=== PATIENT | female | born 1940 | race Caucasian/White ===

== ENCOUNTER 2016-07-13 11:15 | Inpatient (IN) ==
[~2016-07-13 11:15] MED LIST: ASPIRIN 325 MG TABLET PO ONE; DIAZEPAM 5 MG TABLET PO ONE; MAGNESIUM SULF RIDER 2 GM in PREMIX 1 EACH IV PRN; POTASSIUM CHLORIDE RIDER 10 MEQ in PREMIX 1 EACH IV PRN; diphenhydrAMINE CAP 25 MG CAPSULE PO ONE
[2016-07-13] MEDS ORDERED: diphenhydrAMINE CAP 25 MG CAPSULE ONE (12:09)
[2016-07-13] MEDS ORDERED: DIAZEPAM 5 MG TABLET ONE (12:10)
[2016-07-13] MEDS ORDERED: SODIUM BICARBONATE 2.4 MEQ/5 ML VIAL ONE (13:25)
[2016-07-13] MEDS ORDERED: HEPARIN/NACL 0.9% 2 UNITS/ML 0 ML IV ONE (13:25)
[2016-07-13] MEDS ORDERED: LIDOCAINE 1% 20 ML VIAL ONE (13:25)
[2016-07-13] MEDS ORDERED: MAGNESIUM SULF RIDER 4 GM in PREMIX 1 EACH IV PRN (13:41)
[2016-07-13] MEDS ORDERED: guaiFENesin/DM ER 600-30 MG TABLET PO PRN (13:41)
[2016-07-13] MEDS ORDERED: MAGNESIUM SULF RIDER 2 GM in PREMIX 1 EACH IV PRN (13:41)
[2016-07-13] MEDS ORDERED: LACTULOSE 20 GM/30 ML UDCUP PO PRN (13:41)
[2016-07-13] MEDS ORDERED: ONDANSETRON 4 MG/2 ML VIAL IV PRN (13:41)
[2016-07-13] MEDS ORDERED: BISACODYL 5 MG TABLET PO PRN (13:41)
[2016-07-13] MEDS ORDERED: ACETAMINOPHEN 325 MG TABLET PO PRN (13:41)
[2016-07-13] MEDS ORDERED: DOCUSATE SODIUM 100 MG CAPSULE PO PRN (13:41)
--- NOTE | 2016-07-13 13:41 | Event Note ---
Please see scanned history and physical for the patient's history. She is status post bioprosthetic aortic valve replacement. I have been evaluating her in the outpatient setting for progressive dyspnea. She has at least moderate aortic valve restenosis, some aortic regurgitation, moderate mitral regurgitation as well as an abnormal chest x-ray that does show some interstitial fibrosis. She underwent pulmonary function testing at Dr. Cazares's office yesterday but I do not have these results. Stress test was abnormal but difficult to interpret, may just be a poor quality study. She was seen today preoperatively for elective MONSE, right and left heart catheterization. Her dyspnea has profoundly worsened, she cannot walk across the room at this point. She is coughing up yellow sputum. She is wheezing on exam with prolonged expirations and her saturation is 89%. Accordingly, I am going to cancel her elective procedure, admit her to the hospital as an inpatient so that she can undergo pulmonary evaluation and treatment, and we will hope to reschedule her procedure possibly Monday afternoon if she is clinically improved such that it is safer to proceed with the elective procedure. I have discussed this case with Drs. Cazares and Kevin.
[2016-07-13] MEDS ORDERED: ALBUTEROL/IPRATROPIUM 3 ML NEB RESP TX PRN (13:46)
--- NOTE | 2016-07-13 15:09 | EKG Report ---
Stationary ECG Study [facility] Test Date: 07/13/2016 3:09:16 PM Pat Name: CHASIDY VALDEZ Department: Room: 277 Gender: F Metrology Technician: SIXTO : 1940 Requested by: Zelda Kent Order Number: [id number] Reading MD: JUANITA MATA Intervals [place] Rate: 68 P: 54 HI: 188 QRS: 41 QRSD: 91 T: 62 QT: 398 QTc: 415 Interpretive Statements SINUS RHYTHM At 68 bpm probable old anteroseptal MN NST Electronically Signed On 07-18-16 15:39:37 CDT by JUANITA MATA [email or web address]
[2016-07-13 15:20] LABS: Basophils # 0.1 10*3/uL (0.0-0.2); Basophils % 0.7 % (0.0-0.8); Eosinophils % 0.6 % (0.00-10.9); Hematocrit 37.7 VOL% (35.7-47.0); Hemoglobin 12.8 GM/DL (12.0-16.0); Immature Granulocytes % 0.6 %; Immature Granulocytes Absolute 0.04 #; Lymphocytes # 1.5 10*3/uL (1.4-4.0); Lymphocytes % 21.8 % (21.3-54.2); Mean Corpuscular Hemoglobin 30 PG (27-34); Mean Corpuscular Volume 89.1 FL (87-102); Mean Platelet Volume 10.2 FL (9.6-12.0); Monocytes # 0.4 10*3/uL (0.11-0.8); Monocytes % 5.4 % (1.7-12.7); Neutrophils # 4.8 10*3/uL (1.4-7.4); Neutrophils % 70.9 % (38.7-73.9); Platelet Count 165 T/CUMM (130-400); Red Blood Count 4.23 MC/CUMM (3.8-5.5); Red Cell Distribution Width 12.9 % (9.3-17.3); White Blood Count 6.7 T/CUMM (4-12)
--- NOTE | 2016-07-13 15:27 | XRay Report ---
XR chest 2V Indication: Shortness of breath Comparison: 05 Jul 2016 Findings: The heart and mediastinum are stable in size and configuration with cardiac surgery changes. The pulmonary vascularity is slightly increased with bilateral increased interstitial lung density. Small amount of right lower lung density is present. No other other lung infiltrates, effusions, pneumothorax or other abnormality is demonstrated. Impression: Findings suggest mild cardiac decompensation. Small amount of right lower lung density present, could indicate early infiltrate. PROCEDURE INTERPRETED AT [facility] DEPARTMENT OF RADIOLOGY Final Report Signed by: Dr. Dylon Prieto
[2016-07-13 15:44] LABS: Albumin 4.1 G/DL (3.4-5.0); Bilirubin,Total 0.8 MG/DL (0.2-1.0); Calcium 9.1 MG/DL (8.5-10.1); Magnesium 2.2 MG/DL (1.8-2.4); Osmolality,Calculated 286.1 MOS/KG (273-304); Potassium 3.9 MMOL/L (3.5-5.1); Total Protein 6.7 G/DL (6.4-8.3)
[2016-07-13] MEDS: SODIUM CHLORIDE 0.45% 1,000 ML IV SCH (15:48)
[2016-07-13] MEDS ORDERED: FUROSEMIDE 40 MG/4 ML VIAL IV ONE (16:09)
--- NOTE | 2016-07-13 16:10 | Event Note ---
Labs and CXR reviewed. Will initiate Lasix therapy.
--- NOTE | 2016-07-13 18:03 | Pulmonology Consult Note ---
History of Present Illness Chief complaint: Acute bronchitis. Acute CHF History of present illness: Ms. Ashley is a 76 year old white female whom I been asked to see in pulmonary consultation for evaluation and treatment. This patient was admitted for progressive shortness of breath dyspnea on exertion and she had a element of orthopnea and PND. She denies any chest pain. She complains of a cough productive of thick tenacious yellow sputum This patient has gastroesophageal reflux disease but she denies aspiration. She denies solid dysphasia. There is been no cardiac angina. Patient denies epistaxis hemoptysis hematemesis medication melena. The remainder the review of systems is negative Allergies. See below. Home medicines. See below Hospital medicines. See below Past history. Past history of aortic valve replacement. She has developed aortic valve restenosis and aortic regurgitation. Patient also has moderate mitral regurgitation. She is recently had a abnormal stress test. Gastroesophageal reflux disease. High blood pressure. History of depression and anxiety patient had an episode of deep venous thrombophlebitis of left lower extremity in 2010 when she had an aortic valve replacement. There is been no recurrence since then. Hyperlipidemia. Surgeries. Aortic valve replacement June 2010. Tonsillectomy and adenoidectomy. Breast biopsy. Transabdominal hysterectomy. Cholecystectomy. Social history. The patient never smoked but her mother and her were smokers. She is followed by Dr. Zelda Kent and Dr. Susan Harris. 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 Patient does not use alcohol. Family history. Positive for heart disease. Her mother at age 49 of a myocardial infarction. Chest x-ray. 12/2016. Cardiomegaly. Engorged central vasculature. Sternal wires. Bilateral pleural effusions and increased interstitial markings all compatible with congestive heart failure. Cannot absolutely rule out a right lower lung infiltrate. Pulmonary function test. 07/12/2016. My interpretation. 1. Small airways disease. FEF 2575 is 46% 2. No response to inhaled bronchodilators. 3. Moderate restrictive lung disease. Forced vital capacity is 1.67 L or 62% of predicted. 4. Perfusion abnormality. DLCO is 56% of predicted. DLCO/VA is 133% of predicted. 5. Moderate decrease in maximum voluntary ventilation at 50 L/min or 63% predicted. 6. Mild hypoxemia. O2 sats of 94% on room air. Lab. Natruretic peptide is 2301. Creatinine is 1.1 with a BUN of 15. Electrolytes are normal. Liver function tests are normal. Protein albumin and globulin are normal. White blood cell count is 6700 with 71 segs 22 lymphs and 5 monos. H&H is 12.8/37.7 with normal indices and normal red blood cell distribution with. Platelets are 165,000 with a normal mean platelet volume. Physical exam. Vital signs. See below Psychiatric. Oriented 3. Intelligent. Neurologic. Cranial nerves are intact. Long track motor functions intact. Sensory exam was not done. Gait was not tested. Face is symmetrical. Lips and tongue are normal. Neck. Symmetrical slightly kyphotic with no meningismus. No mass. Thyroid was not palpated. Lymphatics. No submandibular cervical or supraclavicular adenopathy. Chest. Bibasilar rales and large airway congestion. No chest wall tenderness. Heart. The sitting position there is a loud systolic ejection murmur over the aortic valve area and there is a systolic ejection murmur over the aortic valve that radiates towards the anterior axillary line on the left. Abdomen. Nontender. Positive bowel sounds. No organs were palpated. Extremities. No edema. Slight tenderness with pressure over the posterior calves bilaterally. Breasts. Deferred and rectal. Deferred. Skin. No cancerous infectious lesions of the face and hands. No other areas were examined. The remainder the physical exam is negative. Impression. 1. Aortic valve replacement 2010. Restenosis and aortic insufficiency 2. Moderate mitral regurgitation 3. Acute congestive heart failure. 4. Acute bronchitis. 5. Non-smoker. Significant history of passive smoking. 6. Moderate restrictive lung disease. This is overestimated because of the presence of congestive heart failure. 7. Small airways disease. 8. Hiatal hernia. Gastroesophageal reflux without evidence of aspiration 9. See past history Plan. 1. Sputum for Gram stain culture sensitivity 2. Meropenem. 1000 mg IV piggyback every 8 hours 3. Mucinex 600 mg p.o. twice daily 4. Duo nebs 4 times daily and as needed 5. Follow-up chest x-ray and lab. 6. Doppler venograms of the lower extremities Home Medications Medication Instructions Recorded Confirmed Type ALPRAZolam [Xanax] 0.125 mg PO BEDTIME 07/12/16 07/13/16 History Escitalopram [Lexapro] 5 mg PO DAILY 07/12/16 07/13/16 History Losartan [Cozaar] 50 mg PO DAILY 07/12/16 07/13/16 History Nebivolol [Bystolic] 10 mg PO DAILY 07/12/16 07/13/16 History Omeprazole 40 mg PO DAILY 07/12/16 07/13/16 History Aspirin Tab 325 mg PO DAILY 07/13/16 07/13/16 History Allergies Allergy/AdvReac Type Severity Reaction Status Date / Time Sulfa (Sulfonamide Allergy Intermediate ITCHING Verified 07/13/16 11:27 Antibiotics) levofloxacin [From Levaquin] Allergy Verified 07/13/16 11:27 codeine AdvReac Severe ITCHING Verified 07/13/16 11:27 promethazine [From Phenergan] AdvReac Verified 07/13/16 11:27 Exam (Pulmon) H&P - Constitutional Vitals: Period Temp Pulse Resp BP Sys/Key Pulse Ox Last 24 Hr 97.6 F-98.1 F 65-76 16-20 138-176/65-90 91-98 Medical,Surgical,& Family Hx - Medical History Cardio: History of: Hypertension Neurology: No history of: Seizures Gastrointestinal: History of: GERD - Surgical History Cardiac Surgeries: Sugical HX of: Cardiac Surgery (AVR) - Social History Smoking Status: Never smoker Frequency of Alcohol Use: None Type of Drug Use: None Results - Labs CBC & BMP: 07/13/16 14:58 07/13/16 14:58
[2016-07-13] MEDS: ALBUTEROL/IPRATROPIUM 3 ML NEB RESP TX SCH (19:16)
[2016-07-13] MEDS: ENOXAPARIN 40 MG/0.4 ML SYRINGE SUBCUT SCH (21:04)
--- NOTE | 2016-07-13 21:04 | Ultrasound Report ---
Referring physician: Zelda Kent MD Exam: Bilateral lower extremity venous ultrasound Date: July 13, 2016 Comparison: Lower extremity venous ultrasound September 10, 2010 Reason: Leg pain Technique: Duplex scan of the bilateral lower extremity veins was performed using B-Mode/grayscale imaging, compression, Doppler spectral analysis and color flow. Ultrasound images were captured and stored. Findings: There is no evidence of thrombus within the left or right common femoral veins, saphenous veins, superficial femoral veins or popliteal veins. Normal compression and augmentation are present throughout. Normal color flow and spectral analysis are observed. Impression: No evidence of deep venous thrombosis within either lower extremity. PROCEDURE INTERPRETED AT [facility] DEPARTMENT OF RADIOLOGY Final Report Signed by: Dr. Tj Varner
[2016-07-13] MEDS: MEROPENEM 1,000 MG in SODIUM CHLORIDE 0.9% 100 ML IV SCH (21:07)
[2016-07-14] MEDS: ALBUTEROL/IPRATROPIUM 3 ML NEB RESP TX SCH ×4 (00:17→20:08)
[2016-07-14] MEDS: ZALEPLON 5 MG CAPSULE PO PRN (02:15)
[2016-07-14] MEDS: SODIUM CHLORIDE 0.45% 1,000 ML IV SCH (03:06)
[2016-07-14] MEDS: MEROPENEM 1,000 MG in SODIUM CHLORIDE 0.9% 100 ML IV SCH ×3 (05:59→20:52)
[2016-07-14 06:39] LABS: Hypochromasia 1+
[2016-07-14 06:52] LABS: Risk Ratio 5.33
[2016-07-14 07:06] LABS: Calcium 8.7 MG/DL (8.5-10.1); Free T4 (Free Thyroxine) 1.34 NG/DL (0.76-1.46); Magnesium 2.3 MG/DL (1.8-2.4); Osmolality,Calculated 280.4 MOS/KG (273-304); Potassium 3.4 MMOL/L (3.5-5.1); Thyroid Stimulating Hormone 1.11 uIU/ml (0.358-3.74)
--- NOTE | 2016-07-14 07:58 | EKG Report ---
Stationary ECG Study [facility] Test Date: 07/14/2016 7:58:48 AM Pat Name: CHASIDY VALDEZ Department: Room: 277 Gender: F Register Clerk: SIXTO : 1940 Requested by: Zelda Kent Order Number: [id number] Reading MD: JUANITA MATA Intervals [place] Rate: 53 P: 44 UT: 187 QRS: -9 QRSD: 92 T: 223 QT: 483 QTc: 465 Interpretive Statements SINUS BRADYCARDIA at 53 bpm LEFT VENTRICULAR HYPERTROPHY AND ST-T CHANGE PROBABLE ANTEROSEPTAL MYOCARDIAL INFARCTION, OF INDETERMINATE A ST-T changes suggest ischemia Electronically Signed On 07-18-16 15:59:34 CDT by JUANITA MATA [email or web address]
[2016-07-14 08:01] LABS: Basophils % 0.7 % (0.0-0.8); Eosinophils # 0.1 10*3/uL (0.0-0.87); Eosinophils % 1.2 % (0.00-10.9); Hemoglobin 13.2 GM/DL (12.0-16.0); Immature Granulocytes % 0.3 %; Immature Granulocytes Absolute 0.02 #; Lymphocytes % 33.6 % (21.3-54.2); Mean Corpuscular HGB Conc 34.7 GM/DL (32-36); Mean Corpuscular Hemoglobin 30 PG (27-34); Mean Platelet Volume 10.3 FL (9.6-12.0); Monocytes # 0.6 10*3/uL (0.11-0.8); Monocytes % 9.6 % (1.7-12.7); Neutrophils # 3.2 10*3/uL (1.4-7.4); Neutrophils % 54.6 % (38.7-73.9); Platelet Count 148 T/CUMM (130-400); Red Blood Count 4.37 MC/CUMM (3.8-5.5); Red Cell Distribution Width 12.8 % (9.3-17.3); White Blood Count 5.9 T/CUMM (4-12)
[2016-07-14] MEDS: FUROSEMIDE 40 MG/4 ML VIAL IV SCH ×2 (08:36→17:39)
[2016-07-14] MEDS: PANTOPRAZOLE 40 MG TABLET PO SCH (08:36)
[2016-07-14] MEDS: ASPIRIN 325 MG TABLET PO SCH (08:36)
[2016-07-14] MEDS: NEBIVOLOL 10 MG TABLET PO SCH (08:36)
[2016-07-14] MEDS: LOSARTAN 50 MG TABLET PO SCH (08:36)
[2016-07-14] MEDS: ESCITALOPRAM 10 MG TABLET PO SCH (08:37)
--- NOTE | 2016-07-14 08:58 | XRay Report ---
Exam: XR chest 2V Date: 07/14/2016 4:00 AM Indication: CHF Comparison: 07/13/2016 Technical: PA lateral Findings: Cardiomegaly present with previous sternotomy. Small granulomas present in the right base measuring approximately 5 mm. Decreasing bibasilar atelectatic change and effusions are present. External cardiac leads are present. Bony structures are otherwise intact. Impression: 1. Cardiomegaly with decreasing bibasilar atelectatic change and effusions 2. Previous sternotomy and valve replacement surgery. PROCEDURE INTERPRETED AT [facility] DEPARTMENT OF RADIOLOGY Final Report Signed by: Dr. Ken Sethi
[2016-07-14] MEDS ORDERED: PANTOPRAZOLE 40 MG TABLET PO SCH (09:00)
--- NOTE | 2016-07-14 10:09 | Pulmonology Progress Note ---
Pulmonary - PN: Subj Interval history: This is a 76-year-old white female whom I saw in pulmonary consultation on 2016. My impressions were. 1. Aortic valve replacement 2010. Restenosis and aortic insufficiency 2. Moderate mitral regurgitation 3. Acute congestive heart failure. 4. Acute bronchitis. 5. Non-smoker. Significant history of passive smoking. 6. Moderate restrictive lung disease. This is overestimated because of the presence of congestive heart failure. 7. Small airways disease. 8. Hiatal hernia. Gastroesophageal reflux without evidence of aspiration 9. See past history 07/14/2016. Today's chest x-ray is markedly improved. Pulmonary edema is about 90% resolved. I do not see any definite infiltrates. Patient's had some yellow sputum production compatible with acute bronchitis. Studies are pending on the sputum. Continue antibiotics. Natruretic peptide remains elevated 1749. White blood cell count is 5900 with 55 segs 34 lymphs and 10 monos. Potassium is low at 3.4 and have ordered replacement. Patient complains of cramps in her legs and I have ordered mag 64 1 p.o. twice daily. Patient's for additional cardiac studies including a transesophageal echocardiogram. I have ordered follow-up chest x-rays and lab for tomorrow morning. Patient was seen along with her family today. She was pleased with her improvement. Physical exam. Vital signs. See below Psychiatric. Oriented 3 Neurologic. Cranial nerves are intact. Long track motor functions intact. Gait is normal. Face. Symmetrical. Lips and tongue are normal. Neck. Symmetrical. No mass. No meningismus Lymphatics. No submandibular cervical supraclavicular or epitrochlear adenopathy. Chest. Clear. No wheeze. No rales. Heart. Systolic ejection murmur of aortic stenosis and mitral regurgitation. Abdomen. Nondistended. Nontender. Positive bowel sounds Lower extremities. No edema. Skin of the face and hands show no cancerous infectious lesions. No other areas of skin were examined. The remainder the physical exam is negative. Plan. 1. Sputum for Gram stain culture sensitivity 2. Meropenem. 1000 mg IV piggyback every 8 hours 3. Mucinex 600 mg p.o. twice daily 4. Duo nebs 4 times daily and as needed 5. Follow-up chest x-ray and lab. 6. Doppler venograms of the lower extremities. 07/13/2016. No evidence of deep venous thrombophlebitis. 7. 07/14/2016. See today's note above. Chest x-ray and lab in the morning. Magnesium. Potassium. Exam (Progress Note) - Constitutional Vitals: Period Temp Pulse Resp BP Sys/Key Pulse Ox Last 24 Hr 96.8 F-98.6 F 57-76 16-20 107-176/55-90 91-99 Results - Labs CBC & BMP: 07/14/16 04:39 07/14/16 04:39
[2016-07-14] MEDS: MAGNESIUM CHLORIDE 64 MG TABLET PO SCH ×2 (10:55→20:50)
[2016-07-14] MEDS: POTASSIUM CHLORIDE 10 MEQ TABLET PO SCH ×2 (10:55→20:50)
--- NOTE | 2016-07-14 13:20 | Cardiology Progress Note ---
<Farzana Ochoa E - Last Filed: 07/14/16 15:27> Assessment and Plan - Time spent with patient Time spent with patient: Less than 30 minutes (1) Dyspnea Status: Acute Assessment and plan: SEE PLAN OF CARE LISTED BELOW. Current Visit: Yes (2) S/P aortic valve replacement Status: Acute Assessment and plan: SEE PLAN OF CARE LISTED BELOW. Current Visit: Yes (3) Aortic Valve Restenosis Status: Acute Assessment and plan: SEE PLAN OF CARE LISTED BELOW. Current Visit: Yes (4) Mitral regurgitation Status: Acute Assessment and plan: SEE PLAN OF CARE LISTED BELOW. Current Visit: Yes (5) Acute CHF (congestive heart failure) Status: Acute Assessment and plan: SEE PLAN OF CARE LISTED BELOW. Current Visit: Yes (6) Acute bronchitis Status: Acute Assessment and plan: SEE PLAN OF CARE LISTED BELOW. Current Visit: Yes (7) Hypertension Status: Chronic Assessment and plan: SEE PLAN OF CARE LISTED BELOW. Current Visit: Yes (8) Hyperlipidemia Status: Chronic Assessment and plan: SEE PLAN OF CARE LISTED BELOW. Current Visit: Yes (9) Statin intolerance Status: Chronic Assessment and plan: SEE PLAN OF CARE LISTED BELOW. Current Visit: Yes Cardiology - PN: Subj Interval history: [employer]: Dr. Kent Ms. Ashley is a 76 year old female who came as an outpatient yesterday for left heart catheterization after being evaluated in the outpatient setting for progressive dyspnea. She is status post bioprosthetic aortic valve replacement and has at least moderate aortic valve restenosis, some aortic regurgitation, moderate mitral regurgitation as well as an abnormal chest x-ray that does show some interstitial fibrosis. Upon being seen by Dr. Kent prior to her cath, her dyspnea had worsened, she was coughing up yellow sputum, and she was found to be wheezing on exam with SpO2 9%. Her cath was cancelled and she was admitted to the hospital for pulmonary evaluation and treatment. Ms. Ashley's daughter in law has just finished [email or web address] school and previously worked with Dr. Kent and I at [facility]. Dr. Cazares has seen her in consultation and she is being treated for acute CHF and acute bronchitis. She has been placed on IV antibiotics, breathing treatments, diuretics, and mucinex. Upon exam today, she reports she is feeling much better except for the complaint that she has had no rest and she had leg cramps all during the night. Her potassium this morning was 3.4 and she has been started on replacement. We will recheck her level this afternoon. She will be rescheduled for left heart catheterization with Dr. Kent tomorrow afternoon at 1330. Further plan and addendum to follow by Dr. Brown. ASSESSMENT/PLAN: 1. PROGRESSIVE DYSPNEA - Overall her acute shortness of breath is much improved. She has been rescheduled for cardiac catheterization with Dr. Kent tomorrow afternoon at 1330. 2. S/P AORTIC VALVE REPLACEMENT - [place] [address] Velarde. 3. AORTIC VALVE RESTENOSIS - Planned for MONSE/heart catheterization Monday by Dr. Kent. 4. MITRAL REGURGITATION - Planned for MONSE/heart catheterization Monday afternoon by Dr. Kent. 5. ACUTE CHF - She is receiving IV Lasix BID and reports she is feeling much improved. 6. ACUTE BRONCHITIS - Pulmonology following. She is being treated with IV antibiotics, breathing treatments, and mucinex. 7. HYPERTENSION - Blood pressure has dropped on occasion since admission. We will continue to monitor. We may need to back off of some of her medications. 8. HYPERLIPIDEMIA - triglycerides 140, cholesterol 208, LDL 151, HDL 39 9. STATIN INTOLERANCE Exam (Progress Note) - Constitutional Vitals: Period Temp Pulse Resp BP Sys/Key Pulse Ox Last 24 Hr 95.1 F-98.6 F 54-76 16-20 95-176/52-90 91-99 Exam: General: Present: Appears Well, No Apparent Distress. Pleasant and cooperative. Appears comfortable. HEENT: Present: PERRL, Normocephaly, atraumatic. Mucus Membranes Moist. No jaundice noted. Conjunctiva moist and clear, sclerae anicteric Neck: Present: Supple Neck, Midline Trachea, No Masses, No Bruit, No tenderness Cardiac: Present: Regular Rate and Rhythm, Grade 4 systolic Murmur with radiation to RUSB Lungs: Present: Few bibasilar crackles posteriorly, otherwise Clear to auscultation bilaterally, no accessory muscle use. Neuro: Present: Awake, alert, and oriented x3. Moves all extremities well without hemiparesis or paralysis. Grossly Intact. Absent: Resting Tremor, Essential Tremor Abdomen: Present: Soft, Active Bowel Sounds, No Masses, Non-Tender, nondistended. No abdominal bruit or thrill noted. Skin: Present: Clear. Absent: Rash, No skin breakdown. Back: Normal inspection, no vertebral tenderness. Musculoskeletal: Present: No Fluid Collection, No Pain, Normal Range of Motion Extremities: Present: Normal Gait, No Clubbing, No Cyanosis, Upper Extr. Pulses 2+, Lower Extr. Pulses 2+, No edema. Capillary refill less than 3 seconds. Result/EKG - Labs CBC & BMP: 07/14/16 04:39 07/14/16 04:39 Lab Results: I have reviewed the past 24 hour labs Labs: Laboratory Results - last 24 hr 07/13/16 07/13/16 07/13/16 14:58 14:58 14:58 WBC 6.7 RBC 4.23 Hgb 12.8 Hct 37.7 MCV 89.1 MCH 30 MCHC 34.0 RDW 12.9 Plt Count 165 MPV 10.2 Neut % (Auto) 70.9 Lymph % (Auto) 21.8 [place] % (Auto) 5.4 Eos % (Auto) 0.6 Baso % (Auto) 0.7 Neut # (Auto) 4.8 Lymph # (Auto) 1.5 [place] # (Auto) 0.4 Eos # (Auto) 0.0 Baso # (Auto) 0.1 Immature Gran % 0.6 Nucleated RBC % 0.0 Immature Gran # 0.04 Nucleated RBCs # 0.00 Hypochromasia Sodium 142 Potassium 3.9 Chloride 109 H Carbon Dioxide 24 Anion Gap 12.9 BUN 15 Creatinine 1.10 H GFR Calculation 50 BUN/Creatinine Ratio 13.00 Glucose 153 H Calculated Osmolality 286.1 Calcium 9.1 Magnesium 2.2 Total Bilirubin 0.80 AST 26 ALT 33 Alkaline Phosphatase 78 B-Natriuretic Peptide 2301 H Total Protein 6.7 Albumin 4.1 Globulin 2.6 Albumin/Globulin Ratio 1.5 Triglycerides Cholesterol LDL Cholesterol VLDL Cholesterol HDL Cholesterol Heart Disease Risk Ratio Free T4 TSH 3rd Generation 07/14/16 07/14/16 07/14/16 04:39 04:39 04:39 WBC 5.9 RBC 4.37 Hgb 13.2 Hct 38.0 MCV 87.0 MCH 30 MCHC 34.7 RDW 12.8 Plt Count 148 MPV 10.3 Neut % (Auto) 54.6 Lymph % (Auto) 33.6 [place] % (Auto) 9.6 Eos % (Auto) 1.2 Baso % (Auto) 0.7 Neut # (Auto) 3.2 Lymph # (Auto) 2.0 [place] # (Auto) 0.6 Eos # (Auto) 0.1 Baso # (Auto) 0.0 Immature Gran % 0.3 Nucleated RBC % 0.0 Immature Gran # 0.02 Nucleated RBCs # 0.00 Hypochromasia 1+ Sodium Potassium Chloride Carbon Dioxide Anion Gap BUN Creatinine GFR Calculation BUN/Creatinine Ratio Glucose Calculated Osmolality Calcium Magnesium Total Bilirubin AST ALT Alkaline Phosphatase B-Natriuretic Peptide 1749 H Total Protein Albumin Globulin Albumin/Globulin Ratio Triglycerides 140 Cholesterol 208 H LDL Cholesterol 151.0 VLDL Cholesterol 28.0 HDL Cholesterol 39 L Heart Disease Risk Ratio 5.33 Free T4 TSH 3rd Generation 07/14/16 04:39 WBC RBC Hgb Hct MCV MCH MCHC RDW Plt Count MPV Neut % (Auto) Lymph % (Auto) [place] % (Auto) Eos % (Auto) Baso % (Auto) Neut # (Auto) Lymph # (Auto) [place] # (Auto) Eos # (Auto) Baso # (Auto) Immature Gran % Nucleated RBC % Immature Gran # Nucleated RBCs # Hypochromasia Sodium 140 Potassium 3.4 L Chloride 103 Carbon Dioxide 27 Anion Gap 13.4 BUN 17 Creatinine 1.00 GFR Calculation 56 BUN/Creatinine Ratio 17.00 Glucose 99 Calculated Osmolality 280.4 Calcium 8.7 Magnesium 2.3 Total Bilirubin AST ALT Alkaline Phosphatase B-Natriuretic Peptide Total Protein Albumin Globulin Albumin/Globulin Ratio Triglycerides Cholesterol LDL Cholesterol VLDL Cholesterol HDL Cholesterol Heart Disease Risk Ratio Free T4 1.34 TSH 3rd Generation 1.110 - EKG EKG results: interpreted by me, sinus rhythm <Mann Brown - Last Filed: 07/14/16 16:12> Cardiology - PN: Subj Interval history: Patient personally interviewed and examined chart reviewed. Discussed case with Farzana Ochoa NP. Agree with the evaluation and assessment and plan. The patient generally is doing well. No chest pain is much better she is not short of breath. She is having no particular complaints. She did not sleep well last night for no specific reason. The patient's lab work is stable. Potassium little low and being replaced. She has had no dysrhythmias. Her exam is stable. Exam reveals her lungs to be quite clear. Cardiac regular rate rhythm with systolic murmur anteriorly. She apparently has what is probably aortic valve restenosis. She has mitral regurgitation. Extremities are warm without edema today. She is for right left heart catheterization and transesophageal echocardiogram tomorrow by Dr. Kent. This is planned for tomorrow afternoon and is scheduled. I discussed this with the patient. Exam (Progress Note) - Constitutional Vitals: Period Temp Pulse Resp BP Sys/Key Pulse Ox Last 24 Hr 95.1 F-98.6 F 52-68 16-20 95-134/52-63 91-99 Result/EKG - Labs CBC & BMP: 07/14/16 04:39 07/14/16 04:39 Labs: Laboratory Results - last 24 hr 07/14/16 07/14/16 07/14/16 04:39 04:39 04:39 WBC 5.9 RBC 4.37 Hgb 13.2 Hct 38.0 MCV 87.0 MCH 30 MCHC 34.7 RDW 12.8 Plt Count 148 MPV 10.3 Neut % (Auto) 54.6 Lymph % (Auto) 33.6 [place] % (Auto) 9.6 Eos % (Auto) 1.2 Baso % (Auto) 0.7 Neut # (Auto) 3.2 Lymph # (Auto) 2.0 [place] # (Auto) 0.6 Eos # (Auto) 0.1 Baso # (Auto) 0.0 Immature Gran % 0.3 Nucleated RBC % 0.0 Immature Gran # 0.02 Nucleated RBCs # 0.00 Hypochromasia 1+ Sodium Potassium Chloride Carbon Dioxide Anion Gap BUN Creatinine GFR Calculation BUN/Creatinine Ratio Glucose Calculated Osmolality Calcium Magnesium B-Natriuretic Peptide 1749 H Triglycerides 140 Cholesterol 208 H LDL Cholesterol 151.0 VLDL Cholesterol 28.0 HDL Cholesterol 39 L Heart Disease Risk Ratio 5.33 Free T4 TSH 3rd Generation 07/14/16 04:39 WBC RBC Hgb Hct MCV MCH MCHC RDW Plt Count MPV Neut % (Auto) Lymph % (Auto) [place] % (Auto) Eos % (Auto) Baso % (Auto) Neut # (Auto) Lymph # (Auto) [place] # (Auto) Eos # (Auto) Baso # (Auto) Immature Gran % Nucleated RBC % Immature Gran # Nucleated RBCs # Hypochromasia Sodium 140 Potassium 3.4 L Chloride 103 Carbon Dioxide 27 Anion Gap 13.4 BUN 17 Creatinine 1.00 GFR Calculation 56 BUN/Creatinine Ratio 17.00 Glucose 99 Calculated Osmolality 280.4 Calcium 8.7 Magnesium 2.3 B-Natriuretic Peptide Triglycerides Cholesterol LDL Cholesterol VLDL Cholesterol HDL Cholesterol Heart Disease Risk Ratio Free T4 1.34 TSH 3rd Generation 1.110
[2016-07-14] MEDS: MONTELUKAST 10 MG TABLET PO SCH (17:39)
[2016-07-14] MEDS: ENOXAPARIN 40 MG/0.4 ML SYRINGE SUBCUT SCH (20:50)
[2016-07-14] MEDS: ALPRAZolam 0.25 MG TABLET PO SCH (20:51)
[2016-07-15] MEDS: ZALEPLON 5 MG CAPSULE PO PRN ×2 (00:40→23:31)
[2016-07-15] MEDS: SODIUM CHLORIDE 0.45% 1,000 ML IV SCH ×3 (01:11→17:00)
[2016-07-15] MEDS: ALBUTEROL/IPRATROPIUM 3 ML NEB RESP TX SCH ×4 (01:32→19:51)
[2016-07-15] MEDS: MEROPENEM 1,000 MG in SODIUM CHLORIDE 0.9% 100 ML IV SCH ×2 (04:10→16:12)
[2016-07-15 05:40] LABS: Calcium 8.6 MG/DL (8.5-10.1); Magnesium 2.5 MG/DL (1.8-2.4); Osmolality,Calculated 285.1 MOS/KG (273-304); Potassium 3.8 MMOL/L (3.5-5.1)
[2016-07-15 07:50] LABS: Hematocrit 38.2 VOL% (35.7-47.0); Hemoglobin 13.1 GM/DL (12.0-16.0); Mean Corpuscular HGB Conc 34.3 GM/DL (32-36); Mean Corpuscular Hemoglobin 31 PG (27-34); Mean Corpuscular Volume 89.7 FL (87-102); Red Blood Count 4.26 MC/CUMM (3.8-5.5); Red Cell Distribution Width 13.1 % (9.3-17.3); White Blood Count 5.4 T/CUMM (4-12)
[2016-07-15 07:51] LABS: Basophils % 0.6 % (0.0-0.8); Eosinophils % 1.7 % (0.00-10.9); Immature Granulocytes % 0.6 %; Lymphocytes % 34.6 % (21.3-54.2); Mean Platelet Volume 10.4 FL (9.6-12.0); Monocytes % 9.9 % (1.7-12.7); Neutrophils % 52.6 % (38.7-73.9); Platelet Count 159 T/CUMM (130-400)
[2016-07-15 07:52] LABS: Eosinophils # 0.1 10*3/uL (0.0-0.87); Immature Granulocytes Absolute 0.03 #; Lymphocytes # 1.9 10*3/uL (1.4-4.0); Monocytes # 0.5 10*3/uL (0.11-0.8); Neutrophils # 2.9 10*3/uL (1.4-7.4)
[2016-07-15] MEDS ORDERED: diphenhydrAMINE CAP 25 MG CAPSULE PO ONE (08:00)
--- NOTE | 2016-07-15 08:24 | XRay Report ---
XR chest 2V Indication: CHF, bronchitis Comparison: Chest x-ray dated July 14, 2016 Technique: Frontal and lateral views of the chest Findings: Continued cardiomegaly status post sternotomy/cardiac valve replacement. Mildly improved bibasilar atelectasis/bilateral pleural fluid. Chronic change of the lungs without new focal consolidation, pleural effusion, or pneumothorax. Osseous and surrounding soft tissue structures appear grossly unchanged. IMPRESSION: Mildly improved bibasilar atelectasis/bilateral pleural fluid. PROCEDURE INTERPRETED AT [facility] DEPARTMENT OF RADIOLOGY Final Report Signed by: Dr Eulogio Andrade
[2016-07-15] MEDS: FUROSEMIDE 40 MG/4 ML VIAL IV SCH (09:17)
[2016-07-15] MEDS: ESCITALOPRAM 10 MG TABLET PO SCH (09:17)
[2016-07-15] MEDS: NEBIVOLOL 10 MG TABLET PO SCH (09:18)
[2016-07-15] MEDS: LOSARTAN 50 MG TABLET PO SCH (09:18)
[2016-07-15] MEDS: ASPIRIN 325 MG TABLET PO SCH (09:18)
[2016-07-15] MEDS: POTASSIUM CHLORIDE 10 MEQ TABLET PO SCH ×2 (09:19→21:11)
[2016-07-15] MEDS: MAGNESIUM CHLORIDE 64 MG TABLET PO SCH ×2 (09:19→21:14)
[2016-07-15] MEDS: PANTOPRAZOLE 40 MG TABLET PO SCH (09:19)
[2016-07-15] MEDS: MONTELUKAST 10 MG TABLET PO SCH (09:20)
--- NOTE | 2016-07-15 11:48 | Pulmonology Progress Note ---
Pulmonary - PN: Subj Interval history: Gm Vega, ANP-BC, GNP-BC, acting as scribe for Dr. Ken Cazares This is a 76-year-old white female who we saw in initial pulmonary consultation on 07/13/2016. At that time, our impressions were: 1. Aortic valve replacement 2010. Restenosis and aortic insufficiency 2. Moderate mitral regurgitation 3. Acute congestive heart failure. 4. Acute bronchitis. 5. Non-smoker. Significant history of passive smoking. 6. Moderate restrictive lung disease. This is overestimated because of the presence of congestive heart failure. 7. Small airways disease. 8. Hiatal hernia. Gastroesophageal reflux without evidence of aspiration 9. See past history 07/14/2016. Today's chest x-ray is markedly improved. Pulmonary edema is about 90% resolved. I do not see any definite infiltrates. Patient's had some yellow sputum production compatible with acute bronchitis. Studies are pending on the sputum. Continue antibiotics. Natruretic peptide remains elevated 1749. White blood cell count is 5900 with 55 segs 34 lymphs and 10 monos. Potassium is low at 3.4 and have ordered replacement. Patient complains of cramps in her legs and I have ordered mag 64 1 p.o. twice daily. Patient's for additional cardiac studies including a transesophageal echocardiogram. I have ordered follow-up chest x-rays and lab for tomorrow morning. Patient was seen along with her family today. She was pleased with her improvement. 07/15/2016. Patient scheduled for left heart cath today in MONSE as per Dr. Kent. Her chest x-ray shows the previously noted heart failure has resolved. Her BNP, however, is elevated at 727. She says being treated for acute bronchitis. She has been wheeze free. From a pulmonary standpoint she continues to do well. Medications have been reviewed. We made no changes today. Labs been reviewed. White count is 5400 with a normal differential; H&H 13.1/ 38.2; platelet count 159,000; creatinine 1.20, BUN 18, sodium 142, potassium 3.8 , magnesium 2.5 Blood cultures are negative at day 1. Exam (Progress Note) - Constitutional Vitals: Period Temp Pulse Resp BP Sys/Key Pulse Ox Last 24 Hr 97.2 F-98.6 F 52-64 16-20 96-128/39-64 93-100 Exam: Chest is clear Heart systolic ejection murmur with aortic stenosis and mitral regurgitation Abdomen is nontender nondistended; bowel sounds positive 4 Lower extremities with nothing to suggest acute deep venous thrombophlebitis Psychiatric oriented 3 Neurologic long-term motor function is intact Plan: MONSE and left heart cath this afternoon as per Dr. Kent. Watch creatinine closely post-cath. Continue present treatment. Results - Labs CBC & BMP: 07/15/16 03:56 07/15/16 03:56 Specialty Discharge - Follow Up or Referrals Follow up with: Zelda Kent MD [Physician] - 2 Weeks (should have f/u 1-2 weeks with Donte)
[2016-07-15] MEDS ORDERED: LIDOCAINE 1% 20 ML VIAL ONE (13:13)
[2016-07-15] MEDS ORDERED: HEPARIN/NACL 0.9% 2 UNITS/ML 1,000 ML IV ONE (13:13)
[2016-07-15] MEDS ORDERED: SODIUM BICARBONATE 2.4 MEQ/5 ML VIAL ONE (13:13)
--- NOTE | 2016-07-15 13:15 | History and Physical Update ---
Sedation H&P Update - Dictation Physical: refer to scanned H&P - Physical Exam Mental Status: alert and oriented Heart: regular rate and rhythm Lung: clear to auscultation Abdomen: within normal limits Vitals: within normal limits - Sedation Plan for Sedation: moderate Patient Consent: Procedure disscussed with patient and patinet has consented., Risks and benefits were discussed with patient,including infection,, bleeding, injury to surrounding structures, seizure, temporary nerve, Patient understands and accepts potential risks/benefits and agrees to, proceed. ASA Class: IV Airway Assessment: Class II: Soft palate, uvula, fauces visible
[2016-07-15] MEDS ORDERED: MIDAZOLAM 2 MG/2 ML VIAL ONE ×2 (13:42→14:05)
[2016-07-15] MEDS ORDERED: fentaNYL 100 MCG/2 ML VIAL ONE (13:42)
[2016-07-15] MEDS ORDERED: HEPARIN/NACL 0.9% 2 UNITS/ML 500 ML IV ONE (14:02)
[2016-07-15] MEDS ORDERED: NITROGLYCERIN SL 0.4 MG TABLET SL PRN (14:36)
--- NOTE | 2016-07-15 14:59 | Cardiac Catheterization ---
Date of Procedure:: 07/15/16 Pre-op Diagnosis: Mitral regurgitation, aortic stenosis, aortic regurgitation, dyspnea, congestive heart failure Post-op diagnosis: other (Angiographically normal coronary arteries, moderate aortic insufficiency) Procedure: 1. Selective left and right coronary angiography. 2. Ascending aortogram to evaluate competency of the aortic valve. 3. Right iliac angiography to rule out vascular complications. 4. Right heart catheterization. 5. Transesophageal echocardiogram. 6. Application of Mynx hemostasis device. Impression: 1. [ Angiographically normal coronary arteries.] 2. [Right] dominant coronary arteries. 3. Mild aortic insufficiency. 4. [Angiographically normal] right iliac artery [without] evidence of vascular complications. 5. Normal right heart pressures. 6. Transesophageal echocardiogram results reported separately. Plan: 1. [Medical management]. Equipment: [Diagnostic 6 Surinamese JL4, JR4, pigtail catheters, [place] catheter]. Hemodynamics: Aortic pressure 135/45 mmHg Right atrial pressure 4 mmHg, right ventricle 38/5 mmHg, pulmonary artery 36/14 mmHg, mean pulmonary artery 21 mmHg, pulmonary capillary wedge pressure 18 mmHg Thermodilution cardiac output 3.89 L/min, cardiac index 2.2. Jesse cardiac output 5.45 L/min, cardiac index 3.1 Sedation: The patient was initially sedated by anesthesiology for transesophageal echocardiogram. Subsequent the patient received Versed 1 mg for ongoing sedation during the right and left heart cath. Procedure: The patient was brought to the [facility] and timeout procedure was performed to verify appropriate identification of the patient and anticipated procedures. She underwent sedation initially with anesthesiology present for transesophageal echocardiogram. That procedure report is reported separately on the MONSE report. After MONSE was performed, the patient was prepped and draped in sterile fashion. The [right] groin was infiltrated with 1% lidocaine and the [right] femoral vein and artery were accessed via modified Seldinger technique using a micropuncture needle and 7 Sur[place]amese venous and 6 [place]e femoral arterial sheath were inserted respectively. [place] catheter was advanced through the venous sheath into the pulmonary artery for thermodilution measurements were obtained. Right heart pressures were obtained on catheter pullback. Attention was then turned to left heart catheterization. All catheter exchanges were performed over a guidewire under fluoroscopic guidance. Diagnostic [6 [place]in[place]e JL4 and JR4] catheters were advanced to the left and right coronary arteries respectively and multiple cineangiograms were performed in varying degrees of obliquity and angulation. Thereafter a pigtail catheter was advanced into the ascending aorta and aortography was performed to evaluate for aortic regurgitation. At conclusion of the procedure [right] iliac angiography was performed to rule out vascular complications. A Mynx hemostasis device was unsuccessfully applied to the right femoral arteriotomy site. Findings: 1. The left main artery [is angiographically normal]. 2. The left anterior descending artery [extends to the apex and wraps around.] There are mild luminal irregularities but no significant stenosis. The first diagonal artery is a large vessel that is trifurcating. 3. There is not an intermediate ramus branch. 4. The circumflex artery is a nondominant vessel that gives rise to 2 marginal arteries. There are mild luminal irregularities but no significant stenosis. 5. The right coronary artery is a dominant vessel. There are mild luminal irregularities with up to 30% stenosis in the distal segment, but no significant stenosis. 6. Moderate aortic regurgitation. 7. The right iliac artery [is angiographically normal] without evidence of vascular complications. Contrast use: Visipaque 85 cc Fluoro time: 3.5 minutes Complications: [none] Specimens removed: [none] Devices implanted: Mynx Anesthesia: moderate conscious sedation, other (Anesthesiology provided anesthesia in the MONSE that preceded right and left heart cath.) Surgeon / Physician: Zelda Kent Nurse Administrator: none (Shabbir Barker CRNA) Estimated blood loss: minimal Specimens: none sent Condition: stable Disposition: floor - Discharge Disposition: Disch To Home/Self Care Condition at Discharge: Stable Activity: no lifting (For 1 week) Driving: not for (2 days) - Medications / Follow-up Referrals: Zelda Kent MD [Physician] - 2 Weeks (should have f/u 1-2 weeks with Donte) New Prescriptions: Furosemide Tab [Lasix Tab] 40 mg PO DAILY #30 tablet RX: Losartan [Cozaar] 25 mg PO DAILY #30 tablet RX: Montelukast Tab [Singulair Tab] 10 mg PO DAILY #30 tablet
[2016-07-15] MEDS ORDERED: PROPOFOL 200 MG/20 ML VIAL IV ONE (15:01)
[2016-07-15] MEDS ORDERED: PHENYLEPHRINE 1 MG/10 ML SYRINGE IV ONE (15:01)
[2016-07-15] MEDS: LOSARTAN 25 MG TABLET PO SCH (15:50)
--- NOTE | 2016-07-15 18:31 | ECHO Report ---
Chaparrita Ashley Exam Date: 07/15/2016 13:17 Referring Physician: Technologist: Sarah Jones Age: 76 Ht (in): Wt (lb): Gender: F Exam Location: [facility] Echo Pre-op Dx: evaluate valves Post-op Dx: Moderate aortic insufficiency, mild mitral regurgitation BP: / HR: Rhythm: Sinus Technical Quality: Fair Specimens Taken None Devices Implanted None Medications Per anesthesiology Complications None Estimated Blood Loss None Proc. Components The patient underwent conscious sedation at the direction of anesthesiology. Once appropriate sedation was achieved the transesophageal probe was lubricated and advanced through the oropharynx into the retrocardiac position where images were acquired. IMPRESSIONS Suspected biatrial enlargement. Suspected left ventricular dilation. Mild mitral regurgitation. Mild tricuspid regurgitation. Grossly satisfactory positioning of the aortic valve with seemingly adequate cusp excursion, moderate aortic regurgitation. MEASUREMENTS (Male / Female) Normal Values FINDINGS Left Ventricle Suboptimally visualized without clear thrombus identified. Grossly the ventricle appears enlarged. Right Ventricle Suboptimally visualized without clear thrombus identified. No obvious chamber enlargement. Right Atrium Grossly appears enlarged. No thrombus identified. Left Atrium Grossly appears enlarged. No thrombus identified. LA Appendage No thrombus identified. IA Septum Appears to be intact by color Doppler and agitated saline contrast interrogation. Mitral Valve Slightly myxomatous and calcified with associated mild regurgitation. There is no significant stenosis. Aortic Valve The bioprosthetic valve appears to be well seated with out clear evidence of rocking or dehiscence. There is moderate insufficiency. The leaflets are suboptimally visualized but appear to have adequate excursion. Tricuspid Valve Structurally normal with mild regurgitation. Pulmonic Valve Not well seen. Pericardium No significant effusion. Aorta Grade 2 atheromatous disease of the descending aorta. Zelda Kent MD (Electronically Signed) Final Date: 15 Jul 2016 18:18
[2016-07-15] MEDS: ALPRAZolam 0.25 MG TABLET PO SCH (21:11)
[2016-07-15] MEDS: ENOXAPARIN 40 MG/0.4 ML SYRINGE SUBCUT SCH (21:12)
[2016-07-16] MEDS: ALBUTEROL/IPRATROPIUM 3 ML NEB RESP TX SCH ×2 (00:09→07:55)
[2016-07-16] MEDS: MEROPENEM 1,000 MG in SODIUM CHLORIDE 0.9% 100 ML IV SCH (03:34)
[2016-07-16 04:45] LABS: Basophils % 0.7 % (0.0-0.8); Eosinophils # 0.1 10*3/uL (0.0-0.87); Eosinophils % 2.3 % (0.00-10.9); Hematocrit 37.7 VOL% (35.7-47.0); Hemoglobin 12.6 GM/DL (12.0-16.0); Immature Granulocytes % 0.3 %; Immature Granulocytes Absolute 0.02 #; Lymphocytes # 1.8 10*3/uL (1.4-4.0); Lymphocytes % 32.1 % (21.3-54.2); Mean Corpuscular HGB Conc 33.4 GM/DL (32-36); Mean Corpuscular Hemoglobin 30 PG (27-34); Mean Corpuscular Volume 88.5 FL (87-102); Mean Platelet Volume 10.1 FL (9.6-12.0); Monocytes # 0.5 10*3/uL (0.11-0.8); Monocytes % 9.2 % (1.7-12.7); Neutrophils # 3.2 10*3/uL (1.4-7.4); Neutrophils % 55.4 % (38.7-73.9); Platelet Count 163 T/CUMM (130-400); Red Blood Count 4.26 MC/CUMM (3.8-5.5); Red Cell Distribution Width 12.8 % (9.3-17.3); White Blood Count 5.7 T/CUMM (4-12)
[2016-07-16 05:47] LABS: Magnesium 2.4 MG/DL (1.8-2.4); Osmolality,Calculated 281.4 MOS/KG (273-304); Potassium 3.9 MMOL/L (3.5-5.1)
[2016-07-16 07:09] VITALS: BP 102/46
[2016-07-16] MEDS: PANTOPRAZOLE 40 MG TABLET PO SCH (08:39)
[2016-07-16] MEDS: POTASSIUM CHLORIDE 10 MEQ TABLET PO SCH (08:39)
[2016-07-16] MEDS: MAGNESIUM CHLORIDE 64 MG TABLET PO SCH (08:40)
[2016-07-16] MEDS: MONTELUKAST 10 MG TABLET PO SCH (08:40)
[2016-07-16] MEDS: ASPIRIN 325 MG TABLET PO SCH (08:40)
[2016-07-16] MEDS: ESCITALOPRAM 10 MG TABLET PO SCH (08:41)
[2016-07-16] MEDS: NEBIVOLOL 10 MG TABLET PO SCH (08:41)
[2016-07-16] MEDS: LOSARTAN 25 MG TABLET PO SCH (08:42)
--- NOTE | 2016-07-16 10:11 | Discharge Summary ---
Hospital Course - Hospital Course Hospital Course: Mrs. Ashley was a plan admission to Dr. Odonnell and underwent MONSE as well as left and right heart catheterization. She did have elevated BNP which is down currently. Is down from 2300 to 560. She is feeling very well and is anxious for discharge. Her right groin access site is without bruit or hematoma and has only mild tenderness. Her LDL is noted to be 151. At this time I believe she is received maximal hospital benefit discharged home. Specialty Discharge - Follow Up or Referrals Follow up with: Zelda Kent MD [Physician] - 2 Weeks (should have f/u 1-2 weeks with Donte) Discharge Plan - Discharge Data Disposition: Disch To Home/Self Care - Discharge Medications New Losartan [Cozaar] 25 mg PO DAILY #30 tablet Montelukast Tab [Singulair Tab] 10 mg PO DAILY #30 tablet Furosemide Tab [Lasix Tab] 40 mg PO DAILY #30 tablet Continue Omeprazole 40 mg PO DAILY Nebivolol [Bystolic] 10 mg PO DAILY ALPRAZolam [Xanax] 0.125 mg PO BEDTIME Aspirin Tab 325 mg PO DAILY Escitalopram [Lexapro] 5 mg PO DAILY Discontinued Losartan [Cozaar] 50 mg PO DAILY - Follow Up or Referral Follow Up: Zelda Kent MD [Physician] - 2 Weeks (should have f/u 1-2 weeks with Donte) - Forms/Instructions Exam - Constitutional Vitals: Period Temp Pulse Resp BP Sys/Key Pulse Ox Last 24 Hr 96.7 F-98.5 F 57-67 15-20 90-116/46-72 90-100 General appearance: normal weight, no acute distress - Neck Neck exam: Present: normal inspection - Respiratory Respiratory exam: Present: clear to auscultation bilaterally. Absent: stridor, wheezes - Cardiovascular Cardiovascular exam: Present: systolic murmur. Absent: diastolic murmur, rubs - GI/Abdominal GI/Abdominal exam: Present: soft. Absent: tenderness - Extremities Exam Extremities exam: Present: other (Right groin without bruit severe tenderness, or hematoma). Absent: edema Discharge Results Procedures and tests throughout hospitalization: Pending Orders 07/13/16 14:58 Blood Culture Routine 07/13/16 18:02 Sputum Culture and Gram Stain Routine 07/15/16 09:49 CL heart Routine 07/17/16 04:00 BMP w/ Mg [Basic Metabolic Panel w/Mg] IN AM Basic Metabolic Panel IN AM Comp Blood Count Auto Diff IN AM Magnesium IN AM 07/18/16 04:00 BMP w/ Mg [Basic Metabolic Panel w/Mg] IN AM BMP w/ Mg [Basic Metabolic Panel w/Mg] IN AM Comp Blood Count Auto Diff IN AM Labs on day of discharge: Labs from last 24 hours 07/16/16 07/16/16 07/16/16 04:11 04:11 04:11 WBC 5.7 RBC 4.26 Hgb 12.6 Hct 37.7 MCV 88.5 MCH 30 MCHC 33.4 RDW 12.8 Plt Count 163 MPV 10.1 Neut % (Auto) 55.4 Lymph % (Auto) 32.1 [place] % (Auto) 9.2 Eos % (Auto) 2.3 Baso % (Auto) 0.7 Neut # (Auto) 3.2 Lymph # (Auto) 1.8 [place] # (Auto) 0.5 Eos # (Auto) 0.1 Baso # (Auto) 0.0 Immature Gran % 0.3 Nucleated RBC % 0.0 Immature Gran # 0.02 Nucleated RBCs # 0.00 Sodium 140 Potassium 3.9 Chloride 106 Carbon Dioxide 27 Anion Gap 10.9 BUN 18 Creatinine 1.00 GFR Calculation 56 BUN/Creatinine Ratio 18.00 Glucose 111 H Calculated Osmolality 281.4 Calcium 8.0 L Magnesium 2.4 B-Natriuretic Peptide 560 H Preliminary micro results at discharge 07/13/16 14:58 Blood Culture - Preliminary Blood No growth at 1 day 07/13/16 14:58 Blood Culture - Preliminary Blood No growth at 1 day DS: Provider Date of admission: 07/13/16 13:41 Primary care physician: Susan Harris M.D. Attending physician on admission: Zelda Kent, Consults: 07/13/16 13:41 Consult to Physician [CONS] Routine Comment: sob, abnormal CXR, abnormal lung sounds Consulting Provider: Ken Cazares Person Notified: angela Date Notified: 07/13/16 Time Notified: 14:12 07/15/16 14:35 Consult to Cardiac Rehabilitation [CONS] Routine Reason for Cardiac Rehabilitation: Other Consult Comment: CHF teaching Discharging clinician: Manjit Avilez
--- NOTE | 2016-07-22 07:47 | Physician Query Form ---
CLICK EDIT DOCUMENT TO SELECT QUERY ANSWER --> OK --> SIGN Merna Garcia RN Clinical Swimming Pool Serviceperson W) [phone] (f) [phone] [email or web address] PROVIDERS: Make your selection(s) from the choices in EACH section by typing an "x" and enter comments in the comment section. Please use your independent medical judgment in providing your response. This request does not imply that any particular answer is desired or expected. CLINICAL INDICATORS: (Providers should not edit this section) Based on documentation of "CHF", [id number], treated with IV Lasix. Trans Thoracic Echocardiogram report from office states "The left ventricular ejection fraction is 60%. The left ventricle diastolic function is impaired ( Grade 1) with normal atrial pressure". Please provide further specificity regarding CHF. ACUITY: ( x) Acute ( ) Chronic ( ) Acute on Chronic ( ) Clinicallly unable to determine TYPE: ( ) Systolic (HFrEF - heart failure with reduced systolic function/EF) ( ) Diastolic (HFpEF - heart failure with preserved systolic function/EF) ( ) Combined Systolic/Diastolic ( ) Other, please specify: ( x) Clinically unable to determine ( ) The patient does NOT have CHF COMMENTS: PLEASE ALSO DOCUMENT RESPONSE IN PROGRESS NOTES AND/OR DISCHARGE SUMMARY Use of terms such as suspected, likely, or probable (associated with a specific diagnosis that is being evaluated, monitored, or treated as if it exists) are acceptable and can be restated in the discharge summary if not ruled out. MTDD
== END 2016-07-16 10:49 | disposition home or self-care (01) | DRG 307 ==
LOC: N.CL 11:15 → N.TELES 13:41
PROVIDERS: ADMIT Internal Medicine Cardiovascular Disease; ATTEND Internal Medicine Cardiovascular Disease